=== PATIENT | male | born 1960 | race Caucasian/White ===

== ENCOUNTER 2020-08-23 10:35 | Outpatient (CLI) | payer MEDICARE, MEDICAID, SELFPAY ==
--- NOTE | 2020-08-23 | ECHO_ITS ---
Patient Info Name: Harjit Ley Age: 59 years : 1960 Gender: Male Ht: 76 in Wt: 180 lbs BSA: 2.09 m2 HR: 76 bpm BP: 194 / 108 mmHg Technical Quality: Good Exam Date: 08/23/2020 11:07 AM Exam Location: [facility] Patient Status: Outpatient Admit Date: 08/23/2020 Staff Ordering Physician: Brad Hahn MD Student Development Dean: Tom Giron, ASHLEY, RT Attending Provider: Brad Hahn MD Exam Type: CA echo doppler color flow Study Info Indications I49.8 - Other specified cardiac arrhythmias Complete two-dimensional, color flow and Doppler transthoracic echocardiogram is performed. Strain analysis performed. Summary 1. Complete two-dimensional, color flow and Doppler transthoracic echocardiogram is performed. 2. Left ventricular chamber dimension is normal. 3. Left ventricular systolic function is normal, estimated at 60-65%. 4. The left ventricular diastolic function is grade I diastolic dysfunction. 5. E/e' 7 is not elevated. 6. Global longitudinal strain is normal at -19.2%. 7. No pulmonary hypertension, estimated pulmonary arterial systolic pressure is 30 mmHg. Left Ventricle E/e' 7 is not elevated. Global longitudinal strain is normal at -19.2%. Left ventricular chamber dimension is normal. Left ventricular systolic function is normal, estimated at 60-65%. The left ventricular diastolic function is grade I diastolic dysfunction. Right Ventricle Right ventricular chamber dimension is normal. Right ventricular systolic function is normal. Left Atria Left atrial chamber dimension is normal. Right Atria Right atrial chamber dimension is normal. Aortic Valve The aortic valve is trileaflet. There is no aortic valve stenosis. There is no aortic valve regurgitation. Pulmonic Valve There is no pulmonic regurgitation. Mitral Valve There is no mitral valve stenosis. There is no mitral valve regurgitation. Tricuspid Valve There is no tricuspid valve regurgitation. No pulmonary hypertension, estimated pulmonary arterial systolic pressure is 30 mmHg. Pericardium/Pleural There is no pericardial effusion. Inferior Vena Cava Normal inferior vena cava with >50% collapse upon inspiration consistent with normal right atrial pressure, 5 mmHg. Aorta The aortic root size at the sinus of Valsalva is normal. Left Ventricular Outflow Tract Name Value Normal LVOT 2D LVOT Diameter 2.1 cm Mitral Valve Name Value Normal MV Doppler MV Decel [facility] 300 cm/s2 MV PHT 63 ms MV Area (PHT) 3.5 cm2 4.0-5.0 MV Diastolic Function MV E Peak Velocity 65 cm/s MV A Peak Velocity 76 cm/s MV E/A 0.9 MV Decel Time 217 ms M
== END 2020-08-23 10:36 | disposition home or self-care (01) ==
LOC: ANHCARD 10:36
PROVIDERS: PCP Psychiatry & Neurology Neurology; Visit Provider Psychiatry & Neurology Neurology
DX: I49.8 Other specified cardiac arrhythmias (principal)
CPT/HCPCS: 93306

== ENCOUNTER 2020-09-13 10:39 | Outpatient (CLI) | payer MEDICARE, MEDICAID, SELFPAY ==
--- NOTE | 2020-09-16 16:00 | WPDHOLTEREM ---
Holter/Event Monitor Holter/Event Monitor Date of procedure: 09/13/20 Procedure Type: 48 hour holter monitor Indications: Arrhythmia Conclusion: 1. 48 hour holter monitor on 09/13/20. 2. Underlying rhythm is sinus rhythm. HR range 47-125 bpm; average HR 75 bpm. 3. There are 21 premature supraventricular complexes and 3 supraventricular couplets. No supraventricular tachycardia. 4. There are 8,230 premature ventricular complexes, 35 ventricular couplets, 1 ventricular triplet, 6 ventricular bigeminy and 107 ventricular trigeminy. No ventricular tachycardia. 5. No sinoatrial or atrioventricular blocks. No significant pauses greater than 2 seconds. 6. Patient had symptoms but no diary available which demonstrate sinus rhythm at 90 bpm and a ventricular couplet.
== END 2020-09-13 10:40 | disposition home or self-care (01) ==
PROVIDERS: Visit Provider Psychiatry & Neurology Neurology
DX: I49.9 Cardiac arrhythmia, unspecified (principal)
CPT/HCPCS: 93225; 93226